=== PATIENT | female | born 2000 | race African-American/Black ===

== ENCOUNTER 2025-03-03 16:44 | Emergency (ER) | payer OTHER, SELFPAY ==
[2025-03-03 17:04] VITALS: BP 146/102; PULSE 74; RESP 17; TEMP 36.6; O2SAT 99; BMI 27.2
[2025-03-04 01:42] VITALS: PULSE 74; O2SAT 100
[2025-03-04 01:43] VITALS: BP 102/68; PULSE 59; O2SAT 100
[2025-03-04 02:00] VITALS: PULSE 49; O2SAT 100
[2025-03-04 02:01] VITALS: BP 121/69; PULSE 44; O2SAT 100
--- NOTE | 2025-03-04 02:21 | ED_ITS ---
HPI - Head Injury General Chief complaint: Head Injury Stated complaint: head injury- [place] Time Seen by Provider: 03/04/25 01:46 History of Present Illness HPI Narrative: 24-year-old female concerned she that she might have had concussion. 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 Patient seemed to be confused when people were addressing her, she could not remember the event initially, was concerned about concussion, sought medical clearance. [place] who referred her to [facility], intramuscular Toradol shot and oral dissolvable ondansetron antinausea medications given. Referred for further evaluation here. Patient has subsequently felt much improved, is ambulatory in the department, feels steady with her gait, no weakness or numbness, significant improvement in slightly residual posterior headache. Feels clear in her mentation and memory. Patient History Social History Smoking Status: Never smoker Smoking Status: Never smoker Exam Narrative Exam Narrative: GENERAL: Well-developed patient, in mild distress. HEAD: Atraumatic. Normocephalic. EYES: Pupils equal round and reactive. Extraocular motions intact. No scleral icterus. No injection or drainage. ENT: Nose without bleeding, purulent drainage. Throat without erythema, tonsillar hypertrophy or exudate. Airway patent. NECK: Trachea midline. Non tender CARDIOVASCULAR: Regular rate and rhythm without murmurs, gallops, or rubs. RESPIRATORY: Clear to auscultation. Breath sounds equal bilaterally. No wheezes, rales, or rhonchi. GASTROINTESTINAL: Abdomen soft, non-tender, nondistended. EXTREMITIES: No edema or joint tenderness. BACK: Nontender without deformity or crepitance. No flank tenderness. NEURO: AOx3. Cranial nerves unremarkable. Motor functions 5/5 upper and lower extremities. Gait not tested by me but reportedly normal in the department per patient. SKIN: No rash or erythema of visible areas Initial Vital Signs Initial Vital Signs: Vital Signs Temperature 98 F 03/03/25 17:04 Pulse Rate 74 03/03/25 17:04 Respiratory Rate 17 03/03/25 17:04 Blood Pressure 146/102 H 03/03/25 17:04 Pulse Oximetry 99 03/03/25 17:04 Oxygen Delivery Method Room Air 03/03/25 17:04 Course Vital Signs Vital signs: Vital Signs - 8 hr 03/04/25 01:42 03/04/25 01:43 03/04/25 01:43 Pulse Rate 74 59 L Blood Pressure 102/68 Pulse Oximetry 100 100 03/04/25 02:00 03/04/25 02:01 03/04/25 02:01 Pulse Rate 49 L 44 L Blood Pressure 121/69 Pulse Oximetry 100 100 03/04/25 02:30 03/04/25 02:30 Pulse Rate 61 Blood Pressure 117/71 Pulse Oximetry 100 MDM - Head Injury MDM Narrative Medical decision making narrative: 24-year-old female with closed head injury yesterday afternoon H, with subsequent injury and transient loss of recent memory and confusion, that seems to be largely improved. Patient was treated with IM Toradol and oral ondansetron at a clinic setting, referred here for further evaluation, possible imaging. Symptoms during waiting room evaluation significantly improved. No longer has any obvious memory problems, no confusion. No nausea or vomiting. We discussed advanced brain imaging, not indicated at this time, patient concurs. Clinically do suspect however that she had had closed head injury with concussion symptoms. We discussed concussion. Advised cognitive rest for the next 2 days, advised physical rest for the next 2 days. She does not believe she needs labor and industry or work note, she has already been evaluated in the [facility] hospital system. Follow up with [facility] healthcare providers in the next 2 days to reassess appropriateness to advance active duties as tolerated. Discha rged home. Return precautions discussed. Discharge Plan Departure Patient Disposition: Home Clinical Impression: Closed head injury, Concussion without loss of consciousness Instructions: DI for Concussion, DI for Closed Head Injury Activity Restrictions/Additional Instructions: Head injury at about noon yesterday, subsequent posterior headache and memory problems and confusion. Significant improvement in headache after intramuscular dose Toradol given in clinic outside facility, and oral ondansetron antinausea medication. No loss of consciousness. Significant improvement in posterior headache. No longer has nausea or vomiting. Feels quite lucid with improved memory and cognitive function. Clinically suspect concussive injury at this time. No advanced imaging of the brain imaging at this moment. Advised cognitive rest for the next 48 hours, advised physical rest for the next 48 hours. Reassessment with [facility] medical provider advised in 48 hours, to reassess appropriateness for incremental return to active duties as tolerated. Stand Alone Forms: Patient Portal/API, Work Release Note
[2025-03-04 02:30] VITALS: BP 117/71; PULSE 61; O2SAT 100
== END 2025-03-04 03:03 | disposition home or self-care (01) ==
PROVIDERS: Emergency Provider Emergency Medicine
DX: S06.0X0A Concussion without loss of consciousness, initial encounter (principal); W22.8XXA Striking against or struck by other objects, initial encounter
CPT/HCPCS: 99281